=== PATIENT | female | born 1955 | race Caucasian/White ===

== ENCOUNTER 2018-04-30 09:37 | Emergency (ER) | payer MEDICARE, BC ==
[2018-04-30 09:54] VITALS: BP 115/65
--- NOTE | 2018-04-30 10:04 | UC ---
UC General HPI - HPI Summary HPI Summary: This patient is a 63 year old F presenting to [facility] [place] with a chief complaint of a general illness since 04-28-18. Since Monday the patient has had myalgia, arthralgia, LINDSEY, fatigue, and nausea. The patient rates the pain 5/10 in severity. Patient denies recent tick exposure, cough, sore throat, urinary sx, fever, diarrhea, constipation, and chills. Pt states that she will wake up in the middle of the night with severe joint pain. - History of Current Complaint Chief Complaint: UCGeneralIllness Stated Complaint: BODYACHES,HEADACHE Time Seen by Provider: 04/30/18 09:50 Hx Obtained From: Patient Onset/Duration: Lasting Days, Still Present Timing: Constant Onset Severity: Moderate Current Severity: Moderate Pain Intensity: 5 Associated Signs & Symptoms: Positive: Other - myalgia, arthralgia, LINDSEY, fatigue , and nausea. - Allergy/Home Medications Allergies/Adverse Reactions: Allergies Allergy/AdvReac Type Severity Reaction Status Date / Time opiates Allergy Vomiting Uncoded 02/01/17 10:08 peanuts Allergy Hives Uncoded 04/30/18 09:54 Home Medications: Home Medications Famotidine TAB* [Pepcid 20 MG TAB*] 20 mg PO DAILY PRN 04/30/18 [History Confirmed 04/30/18] PMH/Surg Hx/FS Hx/Imm Hx Endocrine History: Other Other Endocrine History: arthritis Cardiovascular History: Hypertension Other History Of: Negative For: Anticoagulant Therapy - Surgical History Surgical History: Yes Surgery Procedure, Year, and Place: tonsillectomy, leg, rectal, cholecystectomy , L hip replacement - Family History Known Family History: Positive: Hypertension Negative: Renal Disease, Seizure Disorder - Social History Lives: With Family Alcohol Use: Occasionally Substance Use Type: None Smoking Status (MU): Never Smoked Tobacco Review of Systems Constitutional: Fatigue Gastrointestinal: Nausea Musculoskeletal: Myalgia, Other: - arthralgia Neurological: Headache All Other Systems Reviewed And Are Negative: Yes Physical Exam - Summary Physical Exam Summary: VITAL SIGNS: Reviewed. GENERAL: Patient is a well-developed and nourished female who is lying comfortable in the stretcher. Patient is not in any acute respiratory distress. HEAD AND FACE: Normocephalic EYES: PERRLA, EOMI x 2. EARS: Hearing grossly intact. MOUTH: Oropharynx within normal limits. NECK: Supple, trachea is midline, no adenopathy, no JVD, no carotid bruit. CHEST: Symmetric, no tenderness at palpation LUNGS: Clear to auscultation bilaterally. No wheezing or crackles. CVS: Regular rate and rhythm, S1 and S2 present, no murmurs or gallops appreciated. ABDOMEN: Soft, non-tender. Bowel sounds are normal. No abdominal abnormal pulsations. EXTREMITIES: Full ROM in all major joints, no edema, no cyanosis or clubbing. NEURO: Alert and oriented x 3. No acute neurological deficits. Speech is normal and follows commands. SKIN: Dry and warm Triage Information Reviewed: Yes Vital Signs: Initial Vital Signs Temp 98.8 F 04/30/18 09:48 Pulse 86 04/30/18 09:48 Resp 16 04/30/18 09:48 BP 115/65 04/30/18 09:48 Pulse Ox 99 04/30/18 09:48 Vital Signs Reviewed: Yes Diagnostics - Radiology CXR Radiology Interpretation Completed By: Radiologist - No active cardiopulmonary disease is noted. Dr. Reid has reviewed this report. Course/Dx - Course Course Of Treatment: 63-year-old female with body aches and joint pain. Urinalysis with positive leukocytes medically because of her body aches since the patient seems to be with a UTI. Patient has had a chest x-ray and negative rapid strep and influenza. Therefore the patient was given a prescription for mental functioning and discharged home with follow-up with PCP. She was requested to increase her water intake we will send the urine for cultures. Patient is hemodynamically stable alert and oriented 3. - Differential Dx - Multi-Symptom Provider Diagnoses: UTI Discharge - Sign-Out/Discharge Documenting (check all that apply): Patient Departure - Discharge Plan Condition: Stable Disposition: HOME Prescriptions: Nitrofurantoin Macrocrystals* [Macrodantin 100 mg*] 100 mg PO BID #20 cap Patient Education Materials: Urinary Tract Infection in Women (DC) Referrals: [facility] [place] [facility] [Outside] No Primary Care Phys,NOPCP [Primary Care Provider] - Additional Instructions: Take medications as instructed and adhere to plan Take Acetaminophen or ibuprofen for pain or fever Increase your fluid intake Return to the or go to the emergency department if symptoms worsen Follow-up with primary care physician in next 2-3 days - Billing Disposition and Condition Condition: STABLE Disposition: Home
--- NOTE | 2018-04-30 11:02 | RAD ---
Indication: Cough. 2 views of the chest demonstrate no mediastinal shift. Heart is of normal size and configuration. Lung landa appear clear. No evidence of pleural fluid, pneumonia or pneumothorax is noted. IMPRESSION: No active cardiopulmonary disease is noted.
--- NOTE | 2018-05-01 18:33 | UC ---
- Progress Note Progress Note: final culture no growth no change nick 05/01/18 Discharge - Sign-Out/Discharge Documenting (check all that apply): Post-Discharge Follow Up - Discharge Plan Condition: Stable Disposition: HOME Prescriptions: Nitrofurantoin Macrocrystals* [Macrodantin 100 mg*] 100 mg PO BID #20 cap Patient Education Materials: Urinary Tract Infection in Women (DC) Referrals: [facility] [place] [facility] RE[facility]ERR[facility] [Outside] No Primary Care Phys,NOPCP [Primary Care Provider] - Additional Instructions: Take medications as instructed and adhere to plan Take Acetaminophen or ibuprofen for pain or fever Increase your fluid intake Return to the or go to the emergency department if symptoms worsen Follow-up with primary care physician in next 2-3 days - Billing Disposition and Condition Condition: STABLE Disposition: Home
== END 2018-04-30 11:28 | disposition home or self-care (01) ==
LOC: UCEAST 09:37
DX: N39.0 Urinary tract infection, site not specified (principal); M79.1 Myalgia; R51 Headache; R53.83 Other fatigue; R11.0 Nausea; R05 Cough; M19.90 Unspecified osteoarthritis, unspecified site; I10 Essential (primary) hypertension; Z88.5 Allergy status to narcotic agent; Z91.010 Allergy to peanuts; Z96.642 Presence of left artificial hip joint; Z90.49 Acquired absence of other specified parts of digestive tract; Z82.49 Family history of ischemic heart disease and other diseases of the circulatory system
CPT/HCPCS: 71046; 81003; 87086; 87651; 99212; G0463